=== PATIENT | male | born 1985 | race Two or more races ===

== ENCOUNTER 2017-02-14 04:28 | Inpatient (IN) | payer OTHER ==
[~2017-02-14] VITALS: Ht 165.1 cm; Wt 77.0 kg
[2017-02-14 05:19] LABS: BASOPHIL % 0.6 % (0-2); PLATELET COUNT 272 x10^3mcL (130-400); RED CELL DISTRIBUTION WIDTH 12.1 % (11.5-14.5)
[2017-02-14 05:33] LABS: CALCIUM 8.3 mg/dL (8.5-10.1); CARBON DIOXIDE 28.1 mmol/L (21-32); CHLORIDE SERUM 104 mmol/L (98-107); CREATININE SERUM 0.9 mg/dL (0.7-1.3); GFR1 > 60 mL/min; GLUCOSE SERUM 114 mg/dL (74-106); SODIUM SERUM 138 mmol/L (136-145)
[2017-02-14 05:37] LABS: ALBUMIN 3.6 g/dL (3.4-5.0); ALKALINE PHOSPHATASE 81 U/L (46-116); ALT/SGPT 46 U/L (16-63); AMYLASE 53 U/L (25-115); AST/SGOT 23 U/L (15-37); LIPASE 121 IU/L (73-393); TOTAL PROTEIN, SERUM 8.2 g/dL (6.4-8.2)
[2017-02-14 08:53] LABS: AMPHETAMINE QUAL UR NONE DETECTED (NEG <=1000)
[2017-02-14 08:58] LABS: T3 TOTAL 1.11 ng/mL
[2017-02-14 09:07] LABS: CHOLESTEROL/HDL RATIO 3.6; MAGNESIUM 2.3 mg/dL (1.8-2.4); PHOSPHOROUS 3.2 mg/dL (2.5-4.9)
[2017-02-14 09:24] LABS: microscopic required? NO
[2017-02-14 09:35] LABS: FREE T4 0.76 ng/dL (0.76-1.46); FREE THYROXINE INDEX 1.8 ug/dL (1.4-4.5)
[2017-02-14 10:24] LABS: urine erythrocyte NEGATIVE (NEGATIVE)
[2017-02-14 10:28] VITALS: BP 105/67
[2017-02-14 13:47] VITALS: BP 94/60
[2017-02-14 17:16] VITALS: BP 105/66
[2017-02-14 21:39] VITALS: BP 98/63
[2017-02-15 05:23] VITALS: BP 98/61
== END 2017-02-15 08:36 | disposition left against medical advice (07) | DRG 445 ==
LOC: ED 04:28 → DU 07:31
PROVIDERS: Specialist; ADMIT Family Medicine
DX: K80.10 Calculus of gallbladder with chronic cholecystitis without obstruction (principal); F10.239 Alcohol dependence with withdrawal, unspecified; E83.51 Hypocalcemia; Z53.21 Procedure and treatment not carried out due to patient leaving prior to being seen by health care provider; Y90.9 Presence of alcohol in blood, level not specified; K76.0 Fatty (change of) liver, not elsewhere classified
CPT/HCPCS: 83880; 84439; G0480; J1170; J1885; J2405; J3010; J7030; Q0092

== ENCOUNTER 2018-02-17 17:17 | Inpatient (IN) | payer MEDICAID ==
[~2018-02-17] VITALS: Ht 165.1 cm; Wt 78.1 kg
[2018-02-17 17:21] VITALS: Ht 165.1 cm; Wt 78.1 kg
[2018-02-17 20:28] LABS: BASOPHIL % 0.3 % (0-2); PLATELET COUNT 280 x10^3mcL (130-400); RED CELL DISTRIBUTION WIDTH 12.8 % (11.5-14.5)
[2018-02-17 20:40] LABS: CARBON DIOXIDE 27.1 mmol/L (21-32); CHLORIDE SERUM 101 mmol/L (98-107); GFR1 > 60 mL/min; GLUCOSE SERUM 96 mg/dL (74-106); POTASSIUM SERUM 3.8 mmol/L (3.5-5.1); SODIUM SERUM 136 mmol/L (136-145)
[2018-02-17 20:50] LABS: ALBUMIN 3.8 g/dL (3.4-5.0); ALKALINE PHOSPHATASE 80 U/L (46-116); ALT/SGPT 72 U/L (16-63); AMYLASE 48 U/L (25-115); AST/SGOT 26 U/L (15-37); BILIRUBIN TOTAL 0.39 mg/dL (0.20-1.00); LIPASE 108 IU/L (73-393)
[2018-02-17 21:07] LABS: TOTAL PROTEIN, SERUM 8.6 g/dL (6.4-8.2)
[2018-02-17 23:50] VITALS: BP 137/72
[2018-02-18 00:30] LABS: T3 TOTAL 0.91 ng/mL
[2018-02-18 00:33] LABS: FREE T4 0.87 ng/dL (0.76-1.46); FREE THYROXINE INDEX 1.8 ug/dL (1.4-4.5); T4(THYROXINE) 5.6 ug/dL (4.7-13.3)
[2018-02-18 00:58] LABS: CHOLESTEROL/HDL RATIO 3.4; MAGNESIUM 2.4 mg/dL (1.8-2.4); PHOSPHOROUS 3.9 mg/dL (2.5-4.9)
[2018-02-18 05:00] VITALS: BP 97/60
[2018-02-18 06:39] LABS: BASOPHIL % 0.5 % (0-2); PLATELET COUNT 256 x10^3mcL (130-400); RED CELL DISTRIBUTION WIDTH 12.4 % (11.5-14.5)
[2018-02-18 06:44] LABS: CALCIUM 8.5 mg/dL (8.5-10.1); CARBON DIOXIDE 26.7 mmol/L (21-32); CHLORIDE SERUM 103 mmol/L (98-107); CREATININE SERUM 0.9 mg/dL (0.7-1.3); GFR1 > 60 mL/min; GLUCOSE SERUM 101 mg/dL (74-106); MAGNESIUM 2.2 mg/dL (1.8-2.4); PHOSPHOROUS 4.1 mg/dL (2.5-4.9); POTASSIUM SERUM 3.7 mmol/L (3.5-5.1); SODIUM SERUM 138 mmol/L (136-145)
[2018-02-18 08:01] VITALS: BP 106/62
[2018-02-18 09:56] LABS: UA SPECIFIC GRAVITY >=1.030 (1.005-1.035); microscopic required? YES; urine erythrocyte NEGATIVE (NEGATIVE)
[2018-02-18 12:02] VITALS: BP 103/63
[2018-02-18 12:39] LABS: AMPHETAMINE QUAL UR NONE DETECTED (See below)
[2018-02-18 15:40] VITALS: BP 132/89
[2018-02-18 16:34] VITALS: BP 139/87
[2018-02-18 20:16] VITALS: BP 133/83
[2018-02-19 05:31] VITALS: BP 105/57
[2018-02-19 06:12] LABS: BASOPHIL % 0.2 % (0-2); PLATELET COUNT 283 x10^3mcL (130-400); RED CELL DISTRIBUTION WIDTH 12.2 % (11.5-14.5)
[2018-02-19 06:24] LABS: CALCIUM 8.2 mg/dL (8.5-10.1); CARBON DIOXIDE 23.8 mmol/L (21-32); CHLORIDE SERUM 102 mmol/L (98-107); CREATININE SERUM 0.8 mg/dL (0.7-1.3); GFR1 > 60 mL/min; GLUCOSE SERUM 122 mg/dL (74-106); MAGNESIUM 1.9 mg/dL (1.8-2.4); PHOSPHOROUS 3.9 mg/dL (2.5-4.9); SODIUM SERUM 136 mmol/L (136-145)
[2018-02-19 09:00] VITALS: BP 126/81
[2018-02-19] MEDS ORDERED: NOR10T PO (15:36)
[2018-02-19 15:37] VITALS: BP 126/81
[2018-02-19] MEDS ORDERED: KEFLEX500 M1 PO (15:46)
[2018-02-19 16:17] VITALS: BP 110/74
[2018-02-19] MEDS ORDERED: TRAMADOL HCL50 MG PO (16:41)
== END 2018-02-19 17:25 | disposition home or self-care (01) | DRG 263 ==
LOC: ED 17:17 → MU 23:11
PROVIDERS: Emergency Medicine; Internal Medicine; Surgery
PROC: 0FT44ZZ Resection of Gallbladder, Percutaneous Endoscopic Approach (ICD-10-PCS; principal; 2018-02-18 12:45)
DX: K80.00 Calculus of gallbladder with acute cholecystitis without obstruction (principal); N17.0 Acute kidney failure with tubular necrosis; K80.20 Calculus of gallbladder without cholecystitis without obstruction; E78.5 Hyperlipidemia, unspecified; Z68.28 Body mass index [BMI] 28.0-28.9, adult
CPT/HCPCS: 84439; J0330; J0690; J0696; J1885; J2175; J2250; J2270; J2405; J2704; J2710; J3010; J3490; J7030; J7120; Q0092